=== PATIENT | male | born 1965 | race Caucasian/White ===

== ENCOUNTER 2022-12-06 00:32 | Emergency (ER) | payer SELFPAY ==
[~2022-12-06] VITALS: Ht 182.9 cm; Wt 121.6 kg
--- OUTSIDE RECORDS SUMMARY | ~2022-12-06 | XMS | Continuity of Care Document ---
Demographics + + + | Address | [address] | | | [place] [address] | + + + | Preferred Language | Unknown | + + + | Marital Status | Never | + + + | Congregational Affiliation | Unknown | + + + | Race | White | + + + | Ethnic Group | Not or | + + + Author + + + | Author | [facility] | + + + | Organization | [facility] | + + + | Address | [address] | | | [place], [place] [address] | + + + | Phone | | + + + Care Team Providers + + + + | Care Building Custodial Supervisor Name | Role | Phone | + + + + Unavailable | Unavailable | + + + + Unavailable | Unavailable | + + + + Allergies No information. Encounters No information. Functional Status No information. Immunizations + + + + | date | description | facility | + + + + | 2022-11-24 00:00 | Tdap | [facility] | + + + + Medications + + + + | date | description | facility | + + + + | 2022-11-24 00:00 | FUROSEMIDE | [facility] | + + + + | 2022-11-24 00:00 | | [facility] | | | SULFAMETHOXAZOLE/TRIMETHOPR | | | | IM DS | | + + + + | 2022-11-24 00:00 | AMITRIPTYLINE HCL | [facility] | + + + + Problems + + + + | date | description | facility | + + + + | 2022-11-24 00:00 | Cellulitis | [facility] | + + + + | 2022-11-24 00:00 | Dependent edema | [facility] | + + + + | 2022-11-24 00:00 | Puncture wound | [facility] | + + + + | 2022-11-24 00:36 | HYPERTENSIVE HEART DISEASE | [facility] | | | WITH HEART FAILURE | | + + + + | 2022-11-24 00:36 | HEART FAILURE, UNSPECIFIED | [facility] | | | | | + + + + | 2022-11-24 00:36 | CELLULITIS OF RIGHT LOWER | [facility] | | | LIMB | | + + + + | 2022-11-24 00:36 | CELLULITIS OF LEFT LOWER | [facility] | | | LIMB | | + + + + | 2022-11-24 00:36 | LOCALIZED EDEMA | [facility] | + + + + | 2022-11-24 00:36 | PUNCTURE WOUND WITH | [facility] | | | FOREIGN BODY, LEFT FOOT, | | | | INIT | | + + + + | 2022-11-24 00:36 | CONTACT WITH [place], | [facility] | | | INITIAL ENCOUNTER | | + + + + | 2022-11-24 00:36 | OTHER SNF (CURRENT) | [facility] | | | DRUG THERAPY | | + + + + Procedures No information. Results/Labs +--------+--------+ + +---------+--------+ + | test | date | author | facility | value | unit | | | | | | | | | interpreta | | | | | | | | tion | +--------+--------+ + +---------+--------+ + + + | Result panel 1 | + + + + + + +---------+ + + | (unknown) | (no date) | (unknown) | [facility] | [facility] | (unknown) | | [facility] | value) | unknown) | [facility] | | | | + + + + +---------+ + + + + | Result panel 2 | + + + + + + +---------+ + + | (unknown) | (no date) | (unknown) | [facility] (no | (units | (unknown) | | | [facility] | value) | unknown) | | | | | [facility] | | | | + + + + +---------+ + + + + | Result panel 3 | + + + + + + +---------+ + + | (unknown) | (no date) | (unknown) | [facility] (no | (units | (unknown) | | | | [facility] | value) | unknown) | | | | | [facility] | | | | + + + + +---------+ + + + + | Result panel 4 | + + + + + + +---------+ + + | (unknown) | (no date) | (unknown) | [facility] (no | (units | (unknown) | | | | [facility] | value) | unknown) | | | | | [facility] | | | | + + + + +---------+ + + + + | Result panel 5 | + + + + + + +---------+ + + | (unknown) | (no date) | (unknown) | [facility] (no | (units | (unknown) | | | | [facility] | value) | unknown) | | | | | [facility] | | | | + + + + +---------+ + + + + | Result panel 6 | + + + + + + +---------+ + + | (unknown) | (no date) | (unknown) | [facility] (no | (units | (unknown) | | | | [facility] | value) | unknown) | | | | | | [facility] | | | | + + + + +---------+ + + + + | Result panel 7 | + + + + + + +---------+ + + | (unknown) | (no date) | (unknown) | [facility] (no | (units | (unknown) | | | | [facility] | value) | unknown) | | | | | [facility] | | | | + + + + +---------+ + + + + | Result panel 8 | + + + + + + +---------+ + + | (unknown) | (no date) | (unknown) | [facility] (no | (units | (unknown) | | | | [facility] | value) | unknown) | | | | | [facility] | | | | + + + + +---------+ + + + + | Result panel 9 | + + + + + + +---------+ + + | (unknown) | (no date) | (unknown) | [facility] (no | (units | (unknown) | | | | [facility] | value) | unknown) | | | | | [facility] | | | | + + + + +---------+ + + + + | Result panel 10 | + + + + + + +---------+ + + | (unknown) | (no date) | (unknown) | [facility] (no | (units | (unknown) | | | | [facility] | value) | unknown) | | | | | [facility] | | | | + + + + +---------+ + + + + | Result panel 11 | + + + + + + +---------+ + + | (unknown) | (no date) | (unknown) | [facility] (no | (units | (unknown) | | | | [facility] | value) | unknown) | | | | | [facility] | | | | + + + + +---------+ + + + + | Result panel 12 | + + + + + + +---------+ + + | (unknown) | (no date) | (unknown) | [facility] (no | (units | (unknown) | | | | [facility] | value) | unknown) | | | | | [facility] | | | | + + + + +---------+ + + + + | Result panel 13 | + + + + + + +---------+ + + | (unknown) | (no date) | (unknown) | [facility] (no | (units | (unknown) | | | | [facility] | value) | unknown) | | | | | [facility] | | | | + + + + +---------+ + + + + | Result panel 14 | + + + + + + +---------+ + + | (unknown) | (no date) | (unknown) | [facility] (no | (units | (unknown) | | | | [facility] | value) | unknown) | | | | | [facility] | | | | + + + + +---------+ + + + + | Result panel 15 | + + + + + + +---------+ + + | (unknown) | (no date) | (unknown) | [facility] (no | (units | (unknown) | | | | [facility] | value) | unknown) | | | | | [facility] | | | | + + + + +---------+ + + + + | Result panel 16 | + + + + + + +---------+ + + | (unknown) | (no date) | (unknown) | [facility] (no | (units | (unknown) | | | | [facility] | value) | unknown) | | | | | [facility] | | | | + + + + +---------+ + + + + | Result panel 17 | + + + + + + +---------+ + + | (unknown) | (no date) | (unknown) | [facility] (no | (units | (unknown) | | | [facility] | value) | unknown) | | | | | [facility] | | | | + + + + +---------+ + + + + | Result panel 18 | + + + + + + +---------+ + + | (unknown) | (no date) | (unknown) | [facility] (no | (units | (unknown) | | | [facility] | value) | unknown) | | | | | [facility] | | | | + + + + +---------+ + + + + | Result panel 19 | + + + + + + +---------+ + + | (unknown) | (no date) | (unknown) | [facility] (no | (units | (unknown) | | | | [facility] | value) | unknown) | | | | | [facility] | | | | + + + + +---------+ + + + + | Result panel 20 | + + + + + + +---------+ + + | (unknown) | (no date) | (unknown) | [facility] (no | (units | (unknown) | | | | [facility] | value) | unknown) | | | | | [facility] | | | | + + + + +---------+ + + + + | Result panel 21 | + + + + + + +---------+ + + | (unknown) | (no date) | (unknown) | [facility] (no | (units | (unknown) | | | | [facility] | value) | unknown) | | | | | [facility] | | | | + + + + +---------+ + + + + | Result panel 22 | + + + + + + +---------+ + + | (unknown) | (no date) | (unknown) | [facility] (no | (units | (unknown) | | | | [facility] | value) | unknown) | | | | [facility] | | | | + + + + +---------+ + + + + | Result panel 23 | + + + + + + +---------+ + + | (unknown) | (no date) | (unknown) | [facility] (no | (units | (unknown) | | | [facility] | value) | unknown) | | [facility] | | | | + + + + +---------+ + + + + | Result panel 24 | + + + + + + +---------+ + + | (unknown) | (no date) | (unknown) | [facility] (no | (units | (unknown) | | | [facility] | value) | unknown) | | | | [facility] | | | | + + + + +---------+ + + + + | Result panel 25 | + + + + + + +---------+ + + | (unknown) | (no date) | (unknown) | [facility] (no | (units | (unknown) | | | [facility] | value) | unknown) | | | | [facility] | | | | + + + + +---------+ + + + + | Result panel 26 | + + + + + + +---------+ + + | (unknown) | (no date) | (unknown) | [facility] (no | (units | (unknown) | | | [facility] | value) | unknown) | | | | [facility] | | | | + + + + +---------+ + + + + | Result panel 27 | + + + + + + +---------+ + + | (unknown) | (no date) | (unknown) | [facility] (no | (units | (unknown) | | | [facility] | value) | unknown) | | | [facility] | | | | + + + + +---------+ + + + + | Result panel 28 | + + + + + + +---------+ + + | (unknown) | (no date) | (unknown) | [facility] (no | (units | (unknown) | | | [facility] | value) | unknown) | | | [facility] | | | | + + + + +---------+ + + + + | Result panel 29 | + + + + + + +---------+ + + | (unknown) | (no date) | (unknown) | [facility] (no | (units | (unknown) | | | [facility] | value) | unknown) | | [facility] | | | | + + + + +---------+ + + + + | Result panel 30 | + + + + + + +---------+ + + | (unknown) | (no date) | (unknown) | [facility] (no | (units | (unknown) | | | [facility] | value) | unknown) | | [facility] | | | | + + + + +---------+ + + + + | Result panel 31 | + + + + + + +---------+ + + | (unknown) | (no date) | (unknown) | [facility] (no | (units | (unknown) | | | [facility] | value) | unknown) | | [facility] | | | | + + + + +---------+ + + + + | Result panel 32 | + + + + + + +---------+ + + | (unknown) | (no date) | (unknown) | [facility] (no | (units | (unknown) | | | [facility] | value) | unknown) | | [facility] | | | | + + + + +---------+ + + + + | Result panel 33 | + + + + + + +---------+ + + | (unknown) | (no date) | (unknown) | [facility] | (units | (unknown) | | | [facility] | value) | unknown) | | | [facility] | | | | + + + + +---------+ + + Social History + + + + | date | description | facility | + + + + | 2022-11-24 00:00 | Unknown if ever smoked | [facility] | + + + + Vital Signs + + + +---------+ | date | measurement | value | units | + + + +---------+ | 2022-11-24 00:00 | BMI | 36.3 | kg/m2 | + + + +---------+ | 2022-11-24 00:00 | BP_diastolic | 78 | mmHg | + + + +---------+ | 2022-11-24 00:00 | BP_systolic | 146 | mmHg | + + + +---------+ | 2022-11-24 00:00 | heart_rate | 85 | /min | + + + +---------+ | 2022-11-24 00:00 | height_metric | 182.88 | cm | + + + +---------+ | 2022-11-24 00:00 | height_standard | 72 | in | + + + +---------+ | 2022-11-24 00:00 | o2_saturation | 94 | % | + + + +---------+ | 2022-11-24 00:00 | respiration_rate | 18 | /min | + + + +---------+ | 2022-11-24 00:00 | temperature_metric | 36.83 | C | | | | | | + + + +---------+ | 2022-11-24 00:00 | | 98.3 | F | | | temperature_standar | | | | | d | | | + + + +---------+ | 2022-11-24 00:00 | weight_metric | 121.56 | kg | + + + +---------+ | 2022-11-24 00:00 | weight_standard | 267.99 | lb | + + + +---------+ | 2022-11-24 00:00 | weight_standard | 268 | lb | + + + +---------+"
--- OUTSIDE RECORDS SUMMARY | ~2022-12-06 | XMS | Continuity of Care Document ---
Demographics + + + | Address | [address] | | | [place] [address] | + + + | Preferred Language | Unknown | + + + | Marital Status | Never | + + + | Pentecostalism Affiliation | Unknown | + + + | Race | White | + + + | Ethnic Group | Not or | + + + Author + + + | Author | [facility] | + + + | Organization | [facility] | + + + | Address | [address] | | | [place], [place] [address] | + + + | Phone | | + + + Care Team Providers + + + + | Care Food Preparation Supervisor Name | Role | Phone | + + + + Unavailable | Unavailable | + + + + Unavailable | Unavailable | + + + + Allergies No information. Encounters No information. Functional Status No information. Immunizations + + + + | date | description | facility | + + + + | 2022-11-24 00:00 | Tdap | [facility] | + + + + Medications + + + + | date | description | facility | + + + + | 2022-11-24 00:00 | FUROSEMIDE | [facility] | + + + + | 2022-11-24 00:00 | | [facility] | | | SULFAMETHOXAZOLE/TRIMETHOPR | | | | IM DS | | + + + + | 2022-11-24 00:00 | AMITRIPTYLINE HCL | [facility] | + + + + Problems + + + + | date | description | facility | + + + + | 2022-11-24 00:00 | Cellulitis | [facility] | + + + + | 2022-11-24 00:00 | Dependent edema | [facility] | + + + + | 2022-11-24 00:00 | Puncture wound | [facility] | + + + + | 2022-11-24 [...] + + | 2022-11-24 00:36 | OTHER HALFWAY (CURRENT) | [facility] | | | DRUG [...] 00:00 | Unknown if ever smoked | [facility] | + + + + Vital Signs [...]
[~2022-12-06 00:32] MED LIST: AMITRIPTYLINE H25 MG PO; BACTRIM DS TAB1 EACH PO; LASIX20 MG PO
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
[2022-12-06] MEDS ORDERED: AMOX TR-K CLV1 EAC1 PO (01:56)
[2022-12-06 02:20] VITALS: BP 131/86
== END 2022-12-06 02:20 | disposition home or self-care (01) ==
LOC: ED 00:32
DX: S90.852A Superficial foreign body, left foot, initial encounter (principal); I11.0 Hypertensive heart disease with heart failure; I50.9 Heart failure, unspecified; X58.XXXA Exposure to other specified factors, initial encounter; Z79.899 Other long term (current) drug therapy
CPT/HCPCS: 28190; 73630; 99283 25; A9270

== ENCOUNTER 2023-03-12 11:32 | Emergency (ER) | payer OTHER ==
[~2023-03-12] VITALS: Ht 182.9 cm; Wt 121.6 kg
[~2023-03-12 11:32] MED LIST changes: +AMOX TR-K CLV1 EAC1 PO; +CEPHALEXIN500 M1 PO; +FUROSEMIDE20 MG PO; +K-TAB ER20 MEQ PO; +LISINOPRIL10 MG PO; +OMEPRAZOLE20 MG PO
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
[2023-03-12] MEDS ORDERED: CEPHALEXIN500 M1 PO (16:53)
[2023-03-12] MEDS ORDERED: K-TAB ER20 MEQ PO (16:53)
[2023-03-12] MEDS ORDERED: FUROSEMIDE20 MG PO (16:53)
[2023-03-12 17:58] VITALS: BP 128/95
== END 2023-03-12 15:29 | disposition home or self-care (01) ==
LOC: ED 11:32
DX: R60.0 Localized edema (principal); Z59.02 Unsheltered homelessness; I11.0 Hypertensive heart disease with heart failure; I50.9 Heart failure, unspecified; Z79.899 Other long term (current) drug therapy
CPT/HCPCS: 99283

== ENCOUNTER 2023-04-21 21:48 | Emergency (ER) | payer OTHER ==
[~2023-04-21] VITALS: Ht 182.9 cm; Wt 121.6 kg
[~2023-04-21 21:48] MED LIST changes: +CYCLOBENZAPRINE10 MG PO
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
[2023-04-21 22:50] LABS: HEMOGLOBIN 15.1 g/dL (12.0-18.0); RDW 13.9 (10.5-15.0)
[2023-04-21 22:53] LABS: BASOPHILS 0.8 % (0-2); EOSINOPHILS 3.1 % (0-6); HEMATOCRIT 46.1 % (35.0-50.0); LYMPHOCYTES 26.2 % (24-44); MCH 29.1 (27-36); MCHC 32.8 g/dl (30-36); MCV 88.8 fl (81-99); MONOCYTES 10.7 % (0-12); NEUTROPHILS 59.2 % (39-80); PLATELET COUNT 286 K/uL (140-440); RBC 5.19 M/ul (4.3-5.7)
[2023-04-21 23:13] LABS: ALBUMIN 3.6 g/dL (3.4-5.0); ALBUMIN/GLOBULIN RATIO 0.9 (1.1-2.4); ANION GAP 12.6 (7-21); BILIRUBIN, TOTAL 0.3 ng/dL (0.2-1.0); BUN/CREATININE RATIO 22.42 (6.0-28.6); CALCIUM 8.5 mg/dL (8.5-10.1); CREATININE, SERUM 1.07 mg/dL (0.70-1.30); POTASSIUM 3.6 mmol/L (3.5-5.1); PROTEIN, TOTAL 7.6 g/dL (6.4-8.2); TSH, 3RD GENERATION 0.804 uIU/mL (0.358-3.740)
[2023-04-21] MEDS ORDERED: CYCLOBENZAPRINE5 MG PO (23:36)
[2023-04-21] MEDS ORDERED: LISINOPRIL10 MG PO (23:36)
[2023-04-21] MEDS ORDERED: LASIX40 MG PO (23:36)
[2023-04-21] MEDS ORDERED: K-TAB ER20 MEQ PO (23:36)
[2023-04-21 23:51] LABS: BILIRUBIN, URINE NEGATIVE (negative); BLOOD/HGB, URINE NEGATIVE (Negative); KETONE, URINE NEGATIVE (Negative); LEUK ESTERASE, URINE NEGATIVE (negative); NITRITE, URINE NEGATIVE (negative)
[2023-04-22 00:05] LABS: AMPHETAMINES, URINE NEGATIVE (NEGATIVE); BARBITURATES, URINE NEGATIVE (NEGATIVE); BENZODIAZEPINE, URINE NEGATIVE (NEGATIVE); BUPRENORPHINE, URINE NEGATIVE (NEGATIVE); CANNABINOID, URINE POSITIVE (NEGATIVE); COCAINE, URINE NEGATIVE (NEGATIVE); ECSTASY, URINE NEGATIVE (NEGATIVE); FENTANYL, URINE NEGATIVE (NEGATIVE); METHADONE, URINE NEGATIVE (NEGATIVE); OPIATES, URINE NEGATIVE (NEGATIVE); OXYCODONE, URINE NEGATIVE (NEGATIVE); PHENCYCLIDINE, URINE NEGATIVE (NEGATIVE)
[2023-04-22 00:32] VITALS: BP 151/89
== END 2023-04-22 00:02 | disposition home or self-care (01) ==
LOC: ED 21:48
PROVIDERS: Internal Medicine
DX: R60.0 Localized edema (principal); R25.2 Cramp and spasm; I11.0 Hypertensive heart disease with heart failure; I50.9 Heart failure, unspecified; Z59.02 Unsheltered homelessness; Z79.899 Other long term (current) drug therapy
CPT/HCPCS: 36415; 71045; 80053; 80307; 81003; 82553; 83880; 84443; 84484; 85025; 99284-25; A9270

== ENCOUNTER 2023-04-24 21:31 | Emergency (ER) | payer OTHER ==
[~2023-04-24] VITALS: Ht 182.9 cm; Wt 121.6 kg
[~2023-04-24 21:31] MED LIST changes: +CYCLOBENZAPRINE5 MG PO; +LASIX40 MG PO
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
[2023-04-24 22:13] LABS: BASOPHILS 1.1 % (0-2); EOSINOPHILS 3.1 % (0-6); HEMATOCRIT 44.4 % (35.0-50.0); HEMOGLOBIN 14.6 g/dL (12.0-18.0); LYMPHOCYTES 26.9 % (24-44); MCH 29.3 (27-36); MCHC 32.9 g/dl (30-36); MCV 89.1 fl (81-99); MONOCYTES 10.6 % (0-12); NEUTROPHILS 58.3 % (39-80); PLATELET COUNT 287 K/uL (140-440); RBC 4.98 M/ul (4.3-5.7); RDW 13.7 (10.5-15.0)
[2023-04-24 22:26] LABS: ALBUMIN 3.5 g/dL (3.4-5.0); ALBUMIN/GLOBULIN RATIO 0.88 (1.1-2.4); ANION GAP 12.1 (7-21); BILIRUBIN, TOTAL 0.3 ng/dL (0.2-1.0); BUN/CREATININE RATIO 22.03 (6.0-28.6); CALCIUM 8.7 mg/dL (8.5-10.1); CREATININE, SERUM 1.18 mg/dL (0.70-1.30); POTASSIUM 4.1 mmol/L (3.5-5.1); PROTEIN, TOTAL 7.5 g/dL (6.4-8.2)
[2023-04-24 23:20] VITALS: BP 154/98
== END 2023-04-24 23:20 | disposition home or self-care (01) ==
LOC: ED 21:31
PROVIDERS: Internal Medicine
DX: Z04.89 Encounter for examination and observation for other specified reasons (principal); Z59.02 Unsheltered homelessness; Z79.899 Other long term (current) drug therapy
CPT/HCPCS: 80053; 82553; 85025; 99283